=== PATIENT | male | born 2000 | race Caucasian/White ===

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

== ENCOUNTER → 2018-02-27 | Emergency (ER) | payer OTHER ==
[2018-02-27 12:43] VITALS: BP 154/50; PULSE 74; TEMP 98; BMI 28.8
--- NOTE | 2018-02-27 16:27 | PDOC ---
History of Present Illness - General Chief Complaint: Pain, Acute Stated Complaint: PAIN Time Seen by Provider: 02/27/18 14:05 Past History - Past Medical History Allergies/Adverse Reactions: Allergies Allergy/AdvReac Type Severity Reaction Status Date / Time No Known Allergies Allergy Verified 02/27/18 12:43 Home Medications: Ambulatory Orders Erythromycin 0.5% Eye Ointment [Erythromycin 0.5% Eye Ointment -] 1 applic OS ONCE #1 tube 10/19/17 Sulfacetamide Sodium 10% [Bleph-10 Ophthalmic Solution -] 2 drop OS Q4H #1 bottle 10/19/17 Cyclobenzaprine HCl [Flexeril -] 10 mg PO HS #10 tablet 11/26/17 Ibuprofen 800 mg PO TID #30 tablet 11/26/17 Asthma: Yes Cardiac Disorders: Yes (MURMUR) COPD: No DVT: No GI Disorders: Yes (APPENDIX REMOVAL, INGUINAL HERNIA) - Surgical History Appendectomy: Yes - Immunization History Immunization Up to Date: Yes - Suicide/Smoking/Psychosocial Hx Smoking Status: No Smoking History: Never smoked Have you smoked in the past 12 months: No Number of Cigarettes Smoked Daily: 0 Cigars Per Day: 0 Information on smoking cessation initiated: No Hx Alcohol Use: No Drug/Substance Use Hx: No Substance Use Type: None, Marijuana *Physical Exam - Vital Signs Last Vital Signs Temp Pulse Resp BP Pulse Ox 98.0 F 74 16 154/50 L 100 02/27/18 12:40 02/27/18 12:40 02/27/18 12:40 02/27/18 12:40 02/27/18 12:40 Moderate Sedation - Procedure Monitoring Vital Signs: Procedure Monitoring Vital Signs Temperature 98.0 F 02/27/18 12:40 Pulse Rate 74 02/27/18 12:40 Respiratory Rate 16 02/27/18 12:40 Blood Pressure 154/50 L 02/27/18 12:40 O2 Sat by Pulse Oximetry (%) 100 02/27/18 12:40 Medical Decision Making - Medical Decision Making Patient not present in Vertical 6 02/27/18 16:33 Patient not present in Vertical 6 or waiting room. Nurse Oliva has not seen this patient either. 02/27/18 16:41 Patient eloped before evaluation by a provider. 02/27/18 16:51 *DC/Admit/Observation/Transfer Diagnosis at time of Disposition: Patient left before evaluation by physician - Discharge Dispostion Disposition: LEFT BEFORE [facility] - Referrals - Patient Instructions - Post Discharge Activity
--- NOTE | 2018-02-27 16:28 | PDOC ---
Attending Attestation - Resident Resident Name: Lilly Ag - ED Attending Attestation I have performed the following: I have examined & evaluated the patient, The case was reviewed & discussed with the resident, I agree w/resident's findings & plan, Exceptions are as noted - HPI HPI: 02/27/18 16:52 I did not see this patient- he eloped prior to evaluation - Physicial Exam PE: 02/27/18 16:53 I did not see this patient. He eloped prior to my evaluation. - Medical Decision Making 02/27/18 16:28 I, Dr. Antonieta Michel, DO, attest that this document has been prepared under my direction and personally reviewed by me in its entirety. I further attest, that it accurately reflects all work, treatment, procedures and medical decision -making performed by me. 02/27/18 16:53 I did not see this patient. He walked out of the ED prior to my evaluation.
== END | disposition left against medical advice (07) ==
LOC: JER 12:36
DX: Z53.21 Procedure and treatment not carried out due to patient leaving prior to being seen by health care provider (principal)
CPT/HCPCS: 99281-25

== ENCOUNTER 2021-11-06 20:16 | Emergency (ER) | payer OTHER ==
[2021-11-06] MEDS ORDERED: KETOROLAC TROMETHAMINE 30 MG/1 ML VIAL IM ONE (20:20)
[2021-11-06 20:23] VITALS: BP 120/69; PULSE 76; RESP 19; TEMP 97.9; BMI 30.1
[2021-11-06] MEDS ORDERED: KETOROLAC TROMETHAMINE 30 MG/1 ML VIAL ONE (20:39)
== END 2021-11-06 21:55 | disposition home or self-care (01) ==
LOC: JERFT 20:16
PROC: 3E023GC Introduction of Other Therapeutic Substance into Muscle, Percutaneous Approach (ICD-10-PCS; principal; 2021-11-06)
DX: S96.911A Strain of unspecified muscle and tendon at ankle and foot level, right foot, initial encounter (principal); X50.9XXA Other and unspecified overexertion or strenuous movements or postures, initial encounter
CPT/HCPCS: 73610-TC-RT-FY; 73630-TC-RT-FY; 99284-25

== ENCOUNTER 2023-02-02 17:02 | Emergency (ER) | payer OTHER ==
[2023-02-02 17:12] VITALS: BP 137/92; PULSE 103; RESP 18; TEMP 98.2; BMI 30.1
[2023-02-02] MEDS ORDERED: KETOROLAC TROMETHAMINE 30 MG/1 ML VIAL IM ONE (18:36)
[2023-02-02] MEDS ORDERED: KETOROLAC TROMETHAMINE 30 MG/1 ML VIAL ONE (18:41)
[2023-02-02] MEDS ORDERED: AMOX TR/POT CLAV 875MG/125MG TABLETS (FP) PO ONE (19:45)
[2023-02-02] MEDS ORDERED: AMOX TR/POT CLAV 875MG/125MG TABLETS (FP) ONE (19:48)
== END 2023-02-02 19:57 | disposition home or self-care (01) ==
LOC: JER 17:02
PROC: 0H98XZZ Drainage of Buttock Skin, External Approach (ICD-10-PCS; principal; 2023-02-02)
PROC: 3E0233Z Introduction of Anti-inflammatory into Muscle, Percutaneous Approach (ICD-10-PCS; 2023-02-02)
DX: K61.0 Anal abscess (principal); R50.9 Fever, unspecified; R11.0 Nausea; R61 Generalized hyperhidrosis
CPT/HCPCS: 76857; 99284-25